=== PATIENT | female | born 1940 | race Caucasian/White ===

== ENCOUNTER 2017-08-03 20:04 | Inpatient (IN) | payer SELFPAY ==
[~2017-08-03] VITALS: Ht 165.1 cm; Wt 74.9 kg
[2017-08-03 20:56] LABS: BASOPHILS % 0.5 % (0.0-2.0); EOSINOPHILS % 3.5 % (0.0-5.0); HEMATOCRIT. 42.3 % (36.0-48.0); HEMOGLOBIN. 14.4 g/dL (12.0-16.0); LYMPHOCYTES % 37.5 % (20.0-50.0); MEAN CORPUSCULAR HEMOGLOBIN 28.3 pg (28.0-32.0); MEAN CORPUSCULAR VOLUME 83.1 fL (81.0-99.0); MEAN PLATELET VOLUME 8.1 fl (7.4-10.4); MONOCYTES % 12.4 % (2.0-8.0); NEUTROPHILS % 46.1 % (40.0-76.0); PLATELET 296 x1000/uL (130-400); RED BLOOD CELL COUNT 5.09 mill/uL (4.2-5.4); RED CELL DISTRIBUTION WIDTH 13.5 % (11.6-14.6)
[2017-08-03 21:02] LABS: CHLORIDE 102 mEq/L (98-107)
[2017-08-03 21:07] LABS: D-DIMER 0.33 mg/L FEU (<0.50); PARTIAL THROMBOPLASTIN TIME 24.1 sec (23.4-31.0); PROTHROMBIN TIME 10.2 sec (9.4-11.6)
[2017-08-03] MEDS ORDERED: ASPIRIN 325MG EC TABLET PO ONE (22:15)
[2017-08-03] MEDS ORDERED: SODIUM CHLORIDE 0.45% 1,000 ML IV SCH (23:06)
[2017-08-03] MEDS ORDERED: HYDROCODONE/ACETAMINOPHEN 5/325MG TABLET PO PRN (23:15)
[2017-08-03] MEDS ORDERED: HYDROMORPHONE HCL/PF 2MG/ML CPJ IV PRN (23:15)
[2017-08-03] MEDS ORDERED: DIPHENHYDRAMINE 50MG/ML VIAL IV PRN (23:15)
[2017-08-03] MEDS ORDERED: ACETAMINOPHEN 325MG TABLET PO PRN (23:15)
[2017-08-03] MEDS ORDERED: NA PHOS,M-B/NA PHOS,DI-BA ENEMA 118ML PR PRN (23:15)
[2017-08-03] MEDS ORDERED: GUAIFENESIN 200MG/10ML SUGAR FREE UDC PO PRN (23:15)
[2017-08-03] MEDS ORDERED: DOCUSATE SODIUM 100MG CAPSULE PO PRN (23:15)
[2017-08-03] MEDS ORDERED: CLONIDINE 0.1MG TABLET PO PRN (23:15)
[2017-08-03] MEDS ORDERED: LORAZEPAM 2MG/ML CPJ IV PRN (23:15)
[2017-08-03] MEDS ORDERED: IPRATROPIUM/ALBUTEROL 0.5-3(2.5)MG/3ML NEB INH PRN (23:15)
[2017-08-03] MEDS ORDERED: MAGNESIUM/ALUMINUM HYDROXIDE/SIMETHICONE 30ML UDC PO PRN (23:15)
[2017-08-03] MEDS ORDERED: ONDANSETRON HCL 4MG/2ML VIAL IV PRN (23:15)
[2017-08-04] VITALS (7 sets, daily range): BP systolic 121–155; BP diastolic 62–81
[2017-08-04 00:02] LABS: CHLORIDE 105 mEq/L (98-107)
[2017-08-04] MEDS ORDERED: ASPI-1159 PO (00:46)
[2017-08-04] MEDS: SODIUM CHLORIDE 0.45% 1,000 ML IV SCH (01:07)
[2017-08-04 07:18] LABS: BASOPHILS % 0.7 % (0.0-2.0); EOSINOPHILS % 3.7 % (0.0-5.0); HEMATOCRIT. 39.4 % (36.0-48.0); HEMOGLOBIN. 13.4 g/dL (12.0-16.0); LYMPHOCYTES % 32.8 % (20.0-50.0); MEAN CORPUSCULAR HEMOGLOBIN 28.3 pg (28.0-32.0); MEAN PLATELET VOLUME 8.6 fl (7.4-10.4); MONOCYTES % 11.7 % (2.0-8.0); NEUTROPHILS % 51.1 % (40.0-76.0); PLATELET 259 x1000/uL (130-400); RED BLOOD CELL COUNT 4.74 mill/uL (4.2-5.4); RED CELL DISTRIBUTION WIDTH 13.6 % (11.6-14.6)
[2017-08-04 07:26] LABS: CHLORIDE 107 mEq/L (98-107)
[2017-08-04 07:44] LABS: LDL CHOLESTEROL 89 mg/dL (5-100)
[2017-08-04 07:45] LABS: T4 FREE 0.99 ng/dL (0.76-1.46)
[2017-08-04 07:47] LABS: HDL CHOLESTEROL 24 mg/dL (40-59)
[2017-08-04] MEDS ORDERED: LOSA50TA20 PO (08:06)
[2017-08-04] MEDS: LOSARTAN POTASSIUM 50 MG TABLET PO SCH (08:32)
[2017-08-04] MEDS: ENOXAPARIN 40MG/0.4ML SYR SUBCUT SCH (08:32)
[2017-08-04] MEDS: ASPIRIN 81MG EC TABLET PO SCH (08:32)
[2017-08-04] MEDS ORDERED: PNEUMOCOCCAL 23-VAL P-SAC VAC 0.5 ML IM ONE (12:00)
[2017-08-04 16:53] LABS: CREATINE KINASE 51 IU/L (26-192)
[2017-08-04 16:54] LABS: CREATINE KINASE MB FRACTION 1.1 ng/mL (0.5-3.6)
[2017-08-04] MEDS ORDERED: ATORVASTATIN CALCIUM 40MG TABLET PO SCH (21:00)
[2017-08-04 23:42] LABS: CREATINE KINASE MB FRACTION 1.3 ng/mL (0.5-3.6)
[2017-08-05] VITALS: BP 134/66
[2017-08-05] MEDS: SODIUM CHLORIDE 0.45% 1,000 ML IV SCH (01:12)
[2017-08-05 04:00] VITALS: BP 139/74
[2017-08-05 07:32] LABS: CREATINE KINASE MB FRACTION 1.1 ng/mL (0.5-3.6)
[2017-08-05] MEDS: ASPIRIN 81MG EC TABLET PO SCH (07:47)
[2017-08-05] MEDS: LOSARTAN POTASSIUM 50 MG TABLET PO SCH (07:47)
[2017-08-05] MEDS: ENOXAPARIN 40MG/0.4ML SYR SUBCUT SCH (07:50)
[2017-08-05 08:00] VITALS: BP_SYST 119; BP_SYST 143; BP_DIAS 67; BP_DIAS 76
[2017-08-05 10:10] VITALS: BP 143/76
== END 2017-08-05 10:40 | disposition home or self-care (01) | DRG 45 ==
LOC: ER 22:28 → 5WST 22:50 → EDBEDREQ 22:54 → EDBEDREQTM 22:54 → EDBEDREQSVC 22:54 → ENRESERV 23:04 → CANRESERV 23:04 → ENRESERV 23:19 → 5WST 08-04 00:58
PROVIDERS: ADMIT Internal Medicine; ATTEND Internal Medicine
DX: I63.9 Cerebral infarction, unspecified (principal); G93.41 Metabolic encephalopathy; E46 Unspecified protein-calorie malnutrition; E78.5 Hyperlipidemia, unspecified; I10 Essential (primary) hypertension; Z79.82 Long term (current) use of aspirin; Z79.899 Other long term (current) drug therapy; Z68.27 Body mass index [BMI] 27.0-27.9, adult
CPT/HCPCS: 36415; 70450; 71045; 76700; 80048; 80053; 80061; 82550; 82553; 83036; 83880; 84439; 84443; 84484; 85025; 85379; 85610; 85730; 86850; 86900; 90732; 93005; 93306; 93970; J1650